=== PATIENT | female | born 1965 | race Caucasian/White ===

== ENCOUNTER 2016-11-14 06:27 | Day surgery (SDC) | payer BC ==
--- NOTE | ~2016-11-14 | EGD ---
EGD REPORT [facility] [address] [address] NAME: LATRICE MARCELO : [birth year] STATUS : REG [facility]#: [id number] AGE: 51 ADM/REG DATE : 11/14/16 MR#: [id number] REPORT SERV DATE: 11/14/16 DICTATED BY: DATE: REPORT STATUS : Draft TRANSCRIBED BY: [employer] DATE: 11/14/16 [facility] Patient Name: Latrice Marcelo Date of : 1965 Attending MD: ALVINA TERRAZAS MD Procedure Date No Time: 11/14/2016 Procedure: Colonoscopy Indications: Family history of advanced adenoma of the colon in 1st-degree relative Referring MD: CHRISSY MCKINNON MD Medicines: Monitored Anesthesia Care Complications: No immediate complications. Procedure: Pre-Anesthesia Assessment: - ASA Grade Assessment: II - A patient with mild systemic disease. After I obtained informed consent, the scope was passed under direct vision. Throughout the procedure, the patient's blood pressure, pulse, and oxygen saturations were monitored continuously. The PCF [id number] was introduced through the anus and advanced to the cecum, identified by appendiceal orifice and ileocecal valve. The colonoscopy was performed without difficulty. The patient tolerated the procedure well. The quality of the bowel preparation was excellent. Findings: The perianal and digital rectal examinations were normal. The colon (entire examined portion) appeared normal. There is no endoscopic evidence of diverticula, mass, polyps, ulcerations or angioectasia in the entire colon. No additional abnormalities were found on retroflexion. Impression: - The entire examined colon is normal. Recommendation: - Patient has a contact number available for emergencies. The signs and symptoms of potential delayed complications were discussed with the patient. Return to normal activities tomorrow. Written discharge instructions were provided to the patient. - Regular diet. - Discharge patient to home. - Continue present medications. - Repeat colonoscopy in 5 years for screening purposes. Procedure Code(s): --- Professional --- EGD REPORT [address] [place]. [address] NAME: LATRICE MARCELO : [birth year] STATUS : REG [facility]#: [id number] AGE: 51 ADM/REG DATE : 11/14/16 MR#: [id number] REPORT SERV DATE: 11/14/16 DICTATED BY: DATE: REPORT STATUS : Draft TRANSCRIBED BY: [employer] DATE: 11/14/16 [id number], Colonoscopy, flexible, proximal to splenic flexure; diagnostic, with or without collection of specimen(s) by brushing or washing, with or without colon decompression (separate procedure) Diagnosis Code(s): --- Professional --- Z83.71, Family history of colonic polyps CPT copyright 2013 [employer]. All rights reserved. The codes documented in this report are preliminary and upon waiter/waitress third class review may be revised to meet current compliance requirements. ALVINA TERRAZAS MD 11/14/2016 7:58 AM This report has been signed electronically. Number of Addenda: 0 Note Initiated On: 11/14/2016 7:35 AM Scope Withdrawal Time 0 hours 8 minutes 13 seconds
[~2016-11-14 06:27] MED LIST: ASAB PO; CELEXA10 PO; MAXIMUM D3 PO; MULTIVITAMI1 PO; OS500+D PO; PROBIOTIC PO; VITAMIN D1000 UNI1 PO; VIVELLE SY0.025 MG/2 TOP
== END 2016-11-14 23:59 | disposition home health service (06) ==
LOC: DMU 06:27
PROVIDERS: Internal Medicine Gastroenterology
PROC: 0DJD8ZZ Inspection of Lower Intestinal Tract, Via Natural or Artificial Opening Endoscopic (ICD-10-PCS; principal; 2016-11-14 08:00)
DX: Z83.71 Family history of colonic polyps (principal); G43.909 Migraine, unspecified, not intractable, without status migrainosus; K58.9 Irritable bowel syndrome, unspecified; Z88.5 Allergy status to narcotic agent; Z88.8 Allergy status to other drugs, medicaments and biological substances; Z79.82 Long term (current) use of aspirin; Z79.899 Other long term (current) drug therapy; Z86.010 Personal history of colon polyps; Z90.49 Acquired absence of other specified parts of digestive tract; Z90.710 Acquired absence of both cervix and uterus; Z98.890 Other specified postprocedural states